=== PATIENT | male | born 1985 | race Caucasian/White ===

== ENCOUNTER 2021-11-18 20:21 | Emergency (ER) | payer MEDICAID, OTHER ==
--- NOTE | 2021-11-18 21:30 | NUR ---
CALLED TO TRIAGE NO ANSWER
--- NOTE | 2021-11-18 22:01 | NUR ---
CALLED TO TRIAGE NO ANSWER
--- NOTE | 2021-11-18 23:00 | NUR ---
PATIENT NOT IN WAITING ROOM
== END 2021-11-18 23:05 | disposition left against medical advice (07) ==
LOC: ER 20:27
DX: Z53.21 Procedure and treatment not carried out due to patient leaving prior to being seen by health care provider (principal)